=== PATIENT | female | born 2000 ===

== ENCOUNTER 2024-04-11 04:58 | Day surgery (SDC) | payer OTHER ==
[2024-04-05 08:52] LABS: HEMATOCRIT 39.8 % (36.0-45.00); HEMOGLOBIN 13.6 g/dL (12.0-15.00); MEAN CELL VOLUME 83.8 fL (80.00-100.00); MEAN CORPUSCULAR HEMOGLOBIN 28.5 pg (27.00-32.0); MEAN CORPUSCULAR HGB CONC 34.1 g/dl (32.0-36.0); PLATELET COUNT 291 K/uL (150-450); RED BLOOD COUNT 4.75 M/uL (4.00-6.00); RED CELL DISTRIBUTION WIDTH 13.4 % (11.5-14.5)
[2024-04-05 09:32] LABS: INR 1.03; PARTIAL THROMBOPLASTIN TIME 29.2 SECONDS (22.0-34.0); PROTHROMBIN TIME 11.2 SECONDS (9.0-11.5)
[2024-04-05 09:32] LABS: PH,URINE 7.5 (5.0-8.0); URINE APPEARANCE Clear; URINE BILIRRUBIN Negative (NEGATIVE); URINE BLOOD Moderate; URINE COLOR Yellow; URINE GLUCOSE Negative (NEGATIVE); URINE KETONE Negative (NEGATIVE); URINE LEUKOCYTE Negative; URINE NITRATE Negative; URINE PROTEIN Negative (NEGATIVE); URINE UROBILINOGEN 0.2 E.U./dl
[2024-04-05 09:35] LABS: ALBUMIN 4.2 gm/dL (3.4-5.0); BILIRUBIN TOTAL 0.58 mg/dL (0.3-1.2); CALCIUM 9.6 mg/dL (8.5-10.1); CREATININE SERUM 0.52 mg/dL (0.55-1.02); GFR 147.46; GLOBULINA 3.3 G/DL (2.4-3.5); POTASSIUM 4.47 mEq/L (3.5-5.1); TOTAL PROTEIN 7.5 gm/dL (6.4-8.2)
[2024-04-05 09:38] LABS: URINE BACTERIA 8.8 uL (0.0-1933); URINE RBC 215.7 uL (0.0-20.8)
[2024-04-05 09:44] LABS: URINE EPITHELIAL CELLS 1.3 uL (0.0-38.8)
[~2024-04-11 04:58] MED LIST: PROTONIX20 MG PO
[2024-04-11] MEDS ORDERED: CEFAZOLIN SODIUM 1,000 MG VIAL IV ONE (08:30)
[2024-04-11] MEDS ORDERED: BUPIVACAINE HCL 30 ML VIAL IV ONE (08:30)
[2024-04-11] MEDS ORDERED: ONDANSETRON HCL 2 MG/ML VIAL IV ONE (09:45)
[2024-04-11] MEDS ORDERED: MORPHINE SULFATE 4 MG/ML VIAL IV ONE ×2 (09:50→10:20)
[2024-04-11] MEDS ORDERED: CEFAZOLIN SODIUM 1,000 MG VIAL IV SCH (10:00)
[2024-04-11] MEDS ORDERED: FAMOTIDINE/PF 20 MG/10 ML SYRINGE IV SCH (10:00)
== END 2024-04-11 11:30 | disposition home or self-care (01) ==
LOC: CIR.AMB 04:58
PROVIDERS: ATTEND Specialist
DX: K80.10 Calculus of gallbladder with chronic cholecystitis without obstruction (principal)